=== PATIENT | male | born 1995 | race Caucasian/White ===

== ENCOUNTER → 2017-11-14 | Outpatient (REF) | payer OTHER | LOC: M SFHCPLAZ 15:16 | DX: S81.801A Unspecified open wound, right lower leg, initial encounter (principal); W18.30XA Fall on same level, unspecified, initial encounter; Y92.009 Unspecified place in unspecified non-institutional (private) residence as the place of occurrence of the external cause ==

== ENCOUNTER → 2020-05-12 | Outpatient (CLI) | payer SELFPAY ==
[~2020-05-12] MED LIST: ASPI325T; VICO5TAB
== END ==
LOC: M LABSMTC 09:21
PROVIDERS: ATTEND Pediatrics
DX: Z11.59 Encounter for screening for other viral diseases (principal)

== ENCOUNTER 2021-01-22 20:10 | Emergency (ER) | payer OTHER ==
[~2021-01-22] VITALS: Ht 193 cm; Wt 10.6 kg
[2021-01-23 00:13] VITALS: BP 154/97
== END 2021-01-23 05:44 | disposition left against medical advice (07) ==
LOC: M ED 20:10
DX: Z53.29 Procedure and treatment not carried out because of patient's decision for other reasons (principal)

== ENCOUNTER → 2023-01-27 | Outpatient (REF) | payer OTHER, BC ==
[2023-01-27 18:30] LABS: HEMOGLOBIN A1c 5.4 % (4.0-6.0)
[2023-01-27 18:31] LABS: BLOOD UREA NITROGEN 13 MG/DL (9-23); CALCIUM LEVEL 9.5 MG/DL (8.5-10.1); CARBON DIOXIDE LEVEL 29 MMOL/L (20-31); CHLORIDE LEVEL 102 MMOL/L (98-107); CHOLESTEROL LEVEL 189 MG/DL (<200); CHOLESTEROL RISK RATIO 6.32 (<5); CREATININE FOR GFR 1.17 MG/DL (0.70-1.30); GLOMERULAR FILTRATION RATE > 60.0 (>60); GLUCOSE, FASTING 81 MG/DL (60-100); HDL CHOLESTEROL 29.9 MG/DL (>40); NON-HDL-C 159.1 MG/DL; POTASSIUM SERUM 4.3 MMOL/L (3.5-5.1); SODIUM LEVEL 142 MMOL/L (136-145); TRIGLYCERIDES LEVEL 406 MG/DL (<150)
== END ==
LOC: M SFHCPLAZ 17:51
PROVIDERS: ATTEND Family Medicine
DX: Z13.6 Encounter for screening for cardiovascular disorders (principal); Z68.28 Body mass index [BMI] 28.0-28.9, adult

== ENCOUNTER → 2023-03-14 | Outpatient (CLI) | payer OTHER, BC | LOC: M WUC 11:25 | PROVIDERS: ATTEND Physician Assistant | DX: M25.572 Pain in left ankle and joints of left foot (principal) ==

== ENCOUNTER → 2023-11-21 | Outpatient (CLI) | payer BC ==
[2023-11-21 15:23] LABS: HEMATOCRIT 42.9 % (42.0-52.0); HEMOGLOBIN 14.8 g/dl (13.5-17.5); MEAN CORPUSCULAR HGB CONC 34.5 g/dl (32.0-36.5); MEAN CORPUSCULAR VOLUME 84.1 fl (80.0-96.0); PLATELET COUNT, AUTOMATED 173 10^3/uL (150-450); WHITE BLOOD COUNT 6.9 10^3/uL (4.0-10.0)
[2023-11-21 15:28] LABS: ALBUMIN 4.3 G/DL (3.2-5.2); ALKALINE PHOSPHATASE 68 U/L (46-116); ALT/SGPT 23 U/L (7.0-40); AST/SGOT < 8 U/L (<34); BILIRUBIN,TOTAL 0.4 MG/DL (0.3-1.2); BLOOD UREA NITROGEN 12 MG/DL (9-23); CALCIUM LEVEL 9.6 MG/DL (8.5-10.1); CARBON DIOXIDE LEVEL 29 MMOL/L (20-31); CHLORIDE LEVEL 105 MMOL/L (98-107); CHOLESTEROL LEVEL 168 MG/DL (<200); CHOLESTEROL RISK RATIO 5.38 (<5); CREATININE FOR GFR 0.99 MG/DL (0.70-1.30); GLOMERULAR FILTRATION RATE > 60.0 (>60); GLUCOSE, FASTING 92 MG/DL (60-100); HDL CHOLESTEROL 31.2 MG/DL (>40); LDL CHOLESTEROL 110.2 MG/DL (<100); NON-HDL-C 136.8 MG/DL; POTASSIUM SERUM 4.2 MMOL/L (3.5-5.1); SODIUM LEVEL 139 MMOL/L (136-145); TRIGLYCERIDES LEVEL 133 MG/DL (<150)
== END ==
LOC: M PLALAB 12:21
PROVIDERS: ATTEND Family Medicine
DX: B35.1 Tinea unguium (principal)

== ENCOUNTER → 2023-11-28 | Outpatient (CLI) | payer BC | LOC: M RAD 16:08 | PROVIDERS: ATTEND Family Medicine | DX: R22.1 Localized swelling, mass and lump, neck (principal) ==

== ENCOUNTER → 2024-12-17 | Outpatient (REF) | payer BC | LOC: M LAB REF 14:44 → M SFHCPLAZ 14:44 | PROVIDERS: ATTEND Family Medicine | DX: D48.5 Neoplasm of uncertain behavior of skin (principal) ==

== ENCOUNTER → 2025-03-31 | Outpatient (CLI) | payer BC | LOC: M RAD 07:41 | PROVIDERS: ATTEND Family Medicine | DX: R19.02 Left upper quadrant abdominal swelling, mass and lump (principal); E04.1 Nontoxic single thyroid nodule ==